=== PATIENT | male | born 1965 | race Caucasian/White ===

== ENCOUNTER 2017-04-22 19:59 | Inpatient (IN) | payer BC ==
[2017-04-22] MEDS: ONDANSETRON 4 MG INJ IV (21:04)
[2017-04-22] MEDS: morphine 4 MG/ML VIAL IV (21:04)
[2017-04-22] MEDS: SOD CHLORIDE 0.9% 1,000 ML IV ×2 (21:04→23:54)
[2017-04-22 21:25] LABS: ADD MAN DIFF? NO
[2017-04-22 21:31] LABS: BASOPHIL # 0.1 10^3/ul (0.0-0.1); BASOPHILS % 0.6 % (0.0-2.0); EOSINOPHILS # 0.2 10^3/ul (0.0-0.5); EOSINOPHILS % 2.4 % (0.0-7.0); HEMATOCRIT 41.3 % (42.0-52.0); HEMOGLOBIN 14.6 g/dl (14.0-18.0); LYMPHOCYTES # 1.3 10^3/ul (0.8-2.9); LYMPHOCYTES % 15.8 % (15.0-51.0); MEAN CORPUSCULAR HEMOGLOBIN 33.6 pg (29.0-33.0); MEAN CORPUSCULAR HGB CONC 35.4 g/dl (32.0-37.0); MEAN CORPUSCULAR VOLUME 94.9 fl (82.0-101.0); MEAN PLATELET VOLUME 10.1 fl (7.4-10.4); MONOCYTE # 0.6 10^3/ul (0.3-0.9); MONOCYTES % 7.6 % (0.0-11.0); NEUTROPHIL # 5.9 10^3/ul (1.6-7.5); NEUTROPHILS % 73.4 % (39.0-77.0); PLATELET COUNT 226 10^3/UL (140-415); RED BLOOD COUNT 4.35 10^6/ul (4.70-6.10); RED CELL DISTRIBUTION WIDTH 11.8 % (11.5-14.5)
[2017-04-22] MEDS: HYDROmorphONE 1 MG/ML SYG IV (21:41)
[2017-04-22 21:48] LABS: ALANINE AMINOTRANSFERASE 67 IU/L (13-69); ALBUMIN 4.2 g/dl (3.3-4.9); ALBUMIN/GLOBULIN RATIO 1.35; ALKALINE PHOSPHATASE 93 IU/L (42-121); ANION GAP 15 (8-16); ASPARTATE AMINO TRANSFERASE 36 IU/L (15-46); BILIRUBIN,INDIRECT 0.4 mg/dl (0-1.1); BILIRUBIN,TOTAL 0.4 mg/dl (0.2-1.3); BLOOD UREA NITROGEN 14 mg/dl (7-20); CALCIUM 9.4 mg/dl (8.4-10.2); CARBON DIOXIDE 28 mmol/L (21-31); CHLORIDE 101 mmol/L (97-110); CREATININE 0.91 mg/dl (0.61-1.24); GLUCOSE 92 mg/dl (70-220); LIPASE 160 U/L (23-300); POTASSIUM 3.9 mmol/L (3.5-5.1); SODIUM 140 mmol/L (135-144); TOTAL PROTEIN 7.3 g/dl (6.1-8.1)
[2017-04-23 00:10] LABS: LACTIC ACID 0.8 mmol/L (0.5-2.0)
[2017-04-23 00:38] LABS: INR 0.96; PROTIME 12.9 Sec (11.9-14.9)
[2017-04-23] MEDS: HYDROmorphONE 1 MG/ML SYG IV (01:11)
[2017-04-23 01:27] LABS: ADD UMIC NO; UR ASCORBIC ACID NEGATIVE (NEGATIVE); UR BILIRUBIN (Dip) NEGATIVE (NEGATIVE); UR BLOOD (Dip) NEGATIVE (NEGATIVE); UR CLARITY CLEAR (CLEAR); UR COLOR YELLOW (YELLOW); UR GLUCOSE (Dip) NEGATIVE (NEGATIVE); UR KETONES (Dip) TRACE mg/dL (NEGATIVE); UR LEUKOCYTE ESTERASE (Dip) NEGATIVE Leu/ul (NEGATIVE); UR NITRITE (Dip) NEGATIVE (NEGATIVE); UR SPECIFIC GRAVITY (Dip) 1.017 (1.003-1.030); UR TOTAL PROTEIN (Dip) NEGATIVE (NEGATIVE); UR UROBILINOGEN (Dip) 1+ mg/dL (NEGATIVE)
[2017-04-23] MEDS ORDERED: ACETAMINOPHEN 325 MG TAB PO ×2 (01:30→02:00)
[2017-04-23] MEDS ORDERED: ONDANSETRON 4 MG INJ IV ×3 (01:30→08:00)
[2017-04-23] MEDS ORDERED: NACL 0.9% 3 ML SYG IV (02:00)
[2017-04-23] MEDS: IOHEXOL 300MG/ML 150 ML BTL ×2 (02:19)
[2017-04-23] MEDS: SOD CHLORIDE 0.9% 100 ML (02:19)
[2017-04-23] MEDS: BARIUM SULF 2% 450 ML BTL (BERRY SMOOTHIE) PO (02:19)
[2017-04-23] MEDS: DIPHENHYDRAMINE 50 MG INJ IV (03:01)
[2017-04-23] MEDS: SOD CHLORIDE 0.9% 1,000 ML IV ×2 (04:22→14:21)
[2017-04-23] MEDS: morphine 2 MG INJ IV ×4 (06:09→20:16)
[2017-04-23] MEDS ORDERED: HEPARIN 25000 UNITS/250 ML 250 ML IV (06:30)
[2017-04-23] MEDS ORDERED: HEPARIN 1000 UNITS/ML 10 ML INJ IV ×3 (06:30)
[2017-04-23 07:00] LABS: ADD MAN DIFF? NO
[2017-04-23 07:07] LABS: WHITE BLOOD COUNT 6.2 10^3/ul (4.8-10.8)
[2017-04-23 07:07] LABS: BASOPHILS % 0.5 % (0.0-2.0); EOSINOPHILS # 0.2 10^3/ul (0.0-0.5); EOSINOPHILS % 3.3 % (0.0-7.0); HEMATOCRIT 36.9 % (42.0-52.0); LYMPHOCYTES # 1.2 10^3/ul (0.8-2.9); LYMPHOCYTES % 19.8 % (15.0-51.0); MEAN CORPUSCULAR HEMOGLOBIN 33.9 pg (29.0-33.0); MEAN CORPUSCULAR HGB CONC 35.2 g/dl (32.0-37.0); MEAN CORPUSCULAR VOLUME 96.1 fl (82.0-101.0); MONOCYTE # 0.5 10^3/ul (0.3-0.9); MONOCYTES % 8.3 % (0.0-11.0); NEUTROPHIL # 4.2 10^3/ul (1.6-7.5); NEUTROPHILS % 67.8 % (39.0-77.0); PLATELET COUNT 190 10^3/UL (140-415); RED BLOOD COUNT 3.84 10^6/ul (4.70-6.10); RED CELL DISTRIBUTION WIDTH 11.9 % (11.5-14.5)
[2017-04-23 07:27] LABS: INR 1.02; PROTIME 13.5 Sec (11.9-14.9); PT RATIO 1.1
[2017-04-23 07:28] LABS: PARTIAL THROMBOPLASTIN TIME 31.5 Sec (25.0-35.0)
[2017-04-23] MEDS ORDERED: LABETALOL HCL 20MG INJ IV (07:30)
[2017-04-23] MEDS ORDERED: FENTAnyl 50 MCG/ML VIAL IV (07:30)
[2017-04-23] MEDS ORDERED: MIDAZOLAM 1 MG/ML 2 ML INJ IV (07:30)
[2017-04-23] MEDS ORDERED: OXYCODONE/ACETAMINOPHEN (5/325) TAB PO ×2 (07:30)
[2017-04-23] MEDS ORDERED: MEPERIDINE 25 MG INJ IV (07:30)
[2017-04-23] MEDS ORDERED: HYDROmorphONE (0.2 MG/ML) 10ML SYG IV ×3 (07:30)
[2017-04-23] MEDS ORDERED: EPHEDrine SULFATE 50 MG/5 ML SYG IV (07:30)
[2017-04-23] MEDS ORDERED: hydrALAzine 20 MG INJ IV (07:30)
[2017-04-23] MEDS ORDERED: METOCLOPRAMIDE 10 MG INJ IV (07:30)
[2017-04-23] MEDS ORDERED: DIPHENHYDRAMINE 50 MG INJ IV (07:30)
[2017-04-23 07:32] LABS: LACTIC ACID 0.9 mmol/L (0.5-2.0)
[2017-04-23] MEDS ORDERED: ROCURONIUM 50 MG INJ (07:35)
[2017-04-23] MEDS ORDERED: SUCCINYLCHOLINE CHLORIDE 100 MG/5 ML SYG IV (07:35)
[2017-04-23] MEDS ORDERED: LIDOCAINE 2% (SDV) 5 ML INJ (07:35)
[2017-04-23] MEDS ORDERED: GLYCOPYRROLATE 0.4 MG INJ ×2 (07:35→08:12)
[2017-04-23] MEDS ORDERED: PROPOFOL 20 ML (07:36)
[2017-04-23] MEDS ORDERED: MEPERIDINE 100 MG INJ (07:36)
[2017-04-23] MEDS ORDERED: NEOSTIGMINE 3 MG/3 ML SYRINGE ×2 (07:36→08:12)
[2017-04-23] MEDS ORDERED: HYDROmorphONE 0.5 MG/0.5 ML SYG IV (08:00)
[2017-04-23] MEDS ORDERED: CEFAZOLIN 1 GM INJ (08:12)
[2017-04-23] MEDS ORDERED: BUPIVACAINE 0.25%/EPI (SDV) 30 ML INJ (08:17)
[2017-04-23] MEDS: BUPIVACAINE 0.25% (MPF) 30 ML INJ INJ (08:18)
[2017-04-23] MEDS: CIPROFLOXACIN 400MG/D5W 200 ML IVPB ×2 (08:55→20:11)
[2017-04-23] MEDS: FENTAnyl 50 MCG/ML VIAL IV ×2 (09:00→09:06)
[2017-04-23] MEDS: metroNIDAZOLE 500 MG/NS (PMX) 100 ML IVPB ×2 (09:11→16:22)
[2017-04-23] MEDS: D5-NS + KCL 20 MEQ 1,000 ML IV ×3 (10:28→21:50)
[2017-04-23] MEDS: LORAZEPAM 2 MG INJ IV (16:22)
[2017-04-24] MEDS: metroNIDAZOLE 500 MG/NS (PMX) 100 ML IVPB (00:01)
[2017-04-24] MEDS: SOD CHLORIDE 0.9% 1,000 ML IV ×2 (01:52→15:21)
[2017-04-24 05:52] LABS: ADD MAN DIFF? NO
[2017-04-24 05:54] LABS: WHITE BLOOD COUNT 6.7 10^3/ul (4.8-10.8)
[2017-04-24 05:54] LABS: BASOPHILS % 0.4 % (0.0-2.0); EOSINOPHILS # 0.2 10^3/ul (0.0-0.5); EOSINOPHILS % 2.8 % (0.0-7.0); HEMATOCRIT 36.7 % (42.0-52.0); HEMOGLOBIN 12.9 g/dl (14.0-18.0); LYMPHOCYTES % 14.4 % (15.0-51.0); MEAN CORPUSCULAR HEMOGLOBIN 33.9 pg (29.0-33.0); MEAN CORPUSCULAR HGB CONC 35.1 g/dl (32.0-37.0); MEAN CORPUSCULAR VOLUME 96.6 fl (82.0-101.0); MEAN PLATELET VOLUME 9.7 fl (7.4-10.4); MONOCYTE # 0.5 10^3/ul (0.3-0.9); MONOCYTES % 7.4 % (0.0-11.0); NEUTROPHILS % 74.7 % (39.0-77.0); PLATELET COUNT 171 10^3/UL (140-415); RED CELL DISTRIBUTION WIDTH 11.9 % (11.5-14.5)
[2017-04-24] MEDS: ENOXAPARIN 40 MG/0.4 ML SYG SC (06:38)
[2017-04-24 07:06] LABS: ALANINE AMINOTRANSFERASE 47 IU/L (13-69); ALBUMIN 3.2 g/dl (3.3-4.9); ALBUMIN/GLOBULIN RATIO 1.33; ALKALINE PHOSPHATASE 68 IU/L (42-121); ANION GAP 7 (8-16); ASPARTATE AMINO TRANSFERASE 24 IU/L (15-46); BILIRUBIN,INDIRECT 0.3 mg/dl (0-1.1); BILIRUBIN,TOTAL 0.3 mg/dl (0.2-1.3); BLOOD UREA NITROGEN 4 mg/dl (7-20); CALCIUM 8.2 mg/dl (8.4-10.2); CARBON DIOXIDE 31 mmol/L (21-31); CHLORIDE 103 mmol/L (97-110); CHOL/HDL RATIO 3.2 RATIO; CHOLESTEROL 142 mg/dl (100-200); CREATININE 0.63 mg/dl (0.61-1.24); GLUCOSE 116 mg/dl (70-220); HDL CHOLESTEROL 44 mg/dl (28-71); LDL CHOLESTEROL,CALCULATED 84 mg/dl; MAGNESIUM 1.8 mg/dl (1.7-2.5); POTASSIUM 3.9 mmol/L (3.5-5.1); SODIUM 137 mmol/L (135-144); TOTAL PROTEIN 5.6 g/dl (6.1-8.1); TRIGLYCERIDES 69 mg/dl (0-149)
[2017-04-24 07:37] LABS: FREE THYROXINE INDEX (Calc) 2.27 ug/ml (0.65-3.89); T3 UPTAKE 39.9 % (23.5-40.5); T4 (THYROXINE) 5.7 ug/dl (5.5-11.0)
[2017-04-24] MEDS: D5-NS + KCL 20 MEQ 1,000 ML IV ×2 (09:55→19:56)
[2017-04-24] MEDS: morphine 2 MG INJ IV ×4 (09:57→22:18)
[2017-04-25] MEDS: morphine 2 MG INJ IV ×3 (02:26→12:17)
[2017-04-25] MEDS: D5-NS + KCL 20 MEQ 1,000 ML IV (05:57)
[2017-04-25] MEDS: ENOXAPARIN 40 MG/0.4 ML SYG SC (06:29)
[2017-04-25] MEDS ORDERED: OXYCODONE/ACETAMINOPHEN (5/325) TAB PO (12:30)
[2017-04-25] MEDS: OXYCODONE/ACETAMINOPHEN (10/325) TAB PO (17:30)
[2017-04-25] MEDS: ONDANSETRON 4 MG INJ IV (18:58)
[2017-04-25] MEDS ORDERED: IBUPROFEN 600 MG TAB PO (20:00)
[2017-04-25] MEDS: METOCLOPRAMIDE 10 MG INJ IV (21:30)
[2017-04-25] MEDS: LORAZEPAM 2 MG INJ IV (22:54)
[2017-04-26] MEDS: LORAZEPAM 2 MG INJ IV (01:00)
[2017-04-26] MEDS: ENOXAPARIN 40 MG/0.4 ML SYG SC (06:30)
== END 2017-04-26 18:29 | disposition home or self-care (01) | DRG 329 ==
LOC: MS1 04-23 01:12 → E/R 19:59
PROC: 0DS80ZZ Reposition Small Intestine, Open Approach (ICD-10-PCS; principal; 2017-04-23 07:29)
PROC: 0DQV0ZZ Repair Mesentery, Open Approach (ICD-10-PCS; 2017-04-23 07:29)
DX: K56.2 Volvulus (principal); I81 Portal vein thrombosis; K45.8 Other specified abdominal hernia without obstruction or gangrene; K66.8 Other specified disorders of peritoneum; J38.1 Polyp of vocal cord and larynx; E78.5 Hyperlipidemia, unspecified; F41.9 Anxiety disorder, unspecified; Z98.84 Bariatric surgery status
CPT/HCPCS: 36415; 71010; 74176; 74177; 80053; 80061; 81003; 83036; 83605; 83690; 83735; 84436; 84479; 85025; 85610; 85730; 93005; 96374; 96375; 99285-25

== ENCOUNTER 2017-08-04 04:46 | Inpatient (IN) | payer MEDICAID, BC ==
[2017-08-04] MEDS: HYDROmorphONE 0.5 MG/0.5 ML SYG IV (07:51)
[2017-08-04] MEDS: ONDANSETRON 4 MG INJ IV ×3 (07:51→20:31)
[2017-08-04 07:56] LABS: ADD MAN DIFF? NO
[2017-08-04 08:00] LABS: BASOPHILS % 0.3 % (0.0-2.0); EOSINOPHILS % 0.3 % (0.0-7.0); HEMATOCRIT 41.2 % (42.0-52.0); HEMOGLOBIN 14.7 g/dl (14.0-18.0); LYMPHOCYTES # 1.4 10^3/ul (0.8-2.9); LYMPHOCYTES % 11.5 % (15.0-51.0); MEAN CORPUSCULAR HEMOGLOBIN 33.2 pg (29.0-33.0); MEAN CORPUSCULAR HGB CONC 35.7 g/dl (32.0-37.0); MEAN PLATELET VOLUME 9.2 fl (7.4-10.4); MONOCYTE # 0.6 10^3/ul (0.3-0.9); MONOCYTES % 4.9 % (0.0-11.0); NEUTROPHIL # 9.8 10^3/ul (1.6-7.5); NEUTROPHILS % 82.7 % (39.0-77.0); PLATELET COUNT 247 10^3/UL (140-415); RED BLOOD COUNT 4.43 10^6/ul (4.70-6.10); RED CELL DISTRIBUTION WIDTH 11.1 % (11.5-14.5)
[2017-08-04 08:00] LABS: WHITE BLOOD COUNT 11.8 10^3/ul (4.8-10.8)
[2017-08-04 08:24] LABS: ALANINE AMINOTRANSFERASE 40 IU/L (13-69); ALBUMIN 4.2 g/dl (3.3-4.9); ALBUMIN/GLOBULIN RATIO 1.23; ALKALINE PHOSPHATASE 110 IU/L (42-121); ANION GAP 15 (8-16); ASPARTATE AMINO TRANSFERASE 26 IU/L (15-46); BILIRUBIN,INDIRECT 0.1 mg/dl (0-1.1); BILIRUBIN,TOTAL 0.1 mg/dl (0.2-1.3); BLOOD UREA NITROGEN 14 mg/dl (7-20); CALCIUM 9.2 mg/dl (8.4-10.2); CARBON DIOXIDE 30 mmol/L (21-31); CHLORIDE 103 mmol/L (97-110); CREATININE 0.86 mg/dl (0.61-1.24); GLUCOSE 95 mg/dl (70-220); LIPASE 93 U/L (23-300); POTASSIUM 4.4 mmol/L (3.5-5.1); SODIUM 144 mmol/L (135-144); TOTAL PROTEIN 7.6 g/dl (6.1-8.1)
[2017-08-04 08:37] LABS: TROPONIN-I < 0.012 ng/ml (0.00-0.12)
[2017-08-04] MEDS ORDERED: ONDANSETRON 4 MG INJ IV (10:00)
[2017-08-04] MEDS ORDERED: ACETAMINOPHEN 325 MG TAB PO (10:00)
[2017-08-04] MEDS: BARIUM SULF 2% 450 ML BTL (BERRY SMOOTHIE) PO ×2 (10:07)
[2017-08-04 10:25] LABS: LACTIC ACID 0.9 mmol/L (0.5-2.0)
[2017-08-04] MEDS: SOD CHLORIDE 0.9% 100 ML (11:59)
[2017-08-04] MEDS: IOHEXOL 100 ML (11:59)
[2017-08-04] MEDS: IOHEXOL 300MG/ML 30 ML BTL ×2 (11:59)
[2017-08-04] MEDS: morphine 2 MG INJ IV ×2 (12:47→18:34)
[2017-08-04] MEDS ORDERED: NACL 0.9% 3 ML SYG IV (14:00)
[2017-08-04] MEDS: SOD CHLORIDE 0.9% 1,000 ML IV (15:00)
[2017-08-05] MEDS: morphine 2 MG INJ IV ×3 (00:29→13:08)
[2017-08-05] MEDS: SOD CHLORIDE 0.9% 1,000 ML IV ×2 (03:27→17:22)
[2017-08-05 06:36] LABS: ADD MAN DIFF? NO
[2017-08-05 06:39] LABS: BASOPHILS % 0.2 % (0.0-2.0); EOSINOPHILS % 0.1 % (0.0-7.0); HEMATOCRIT 42.6 % (42.0-52.0); HEMOGLOBIN 15.1 g/dl (14.0-18.0); LYMPHOCYTES # 1.3 10^3/ul (0.8-2.9); LYMPHOCYTES % 7.9 % (15.0-51.0); MEAN CORPUSCULAR HEMOGLOBIN 33.4 pg (29.0-33.0); MEAN CORPUSCULAR HGB CONC 35.4 g/dl (32.0-37.0); MEAN CORPUSCULAR VOLUME 94.2 fl (82.0-101.0); MEAN PLATELET VOLUME 9.5 fl (7.4-10.4); MONOCYTE # 0.8 10^3/ul (0.3-0.9); MONOCYTES % 4.8 % (0.0-11.0); NEUTROPHIL # 14.2 10^3/ul (1.6-7.5); NEUTROPHILS % 86.6 % (39.0-77.0); PLATELET COUNT 231 10^3/UL (140-415); RED BLOOD COUNT 4.52 10^6/ul (4.70-6.10); RED CELL DISTRIBUTION WIDTH 11.3 % (11.5-14.5)
[2017-08-05 06:39] LABS: WHITE BLOOD COUNT 16.4 10^3/ul (4.8-10.8)
[2017-08-05 07:04] LABS: ALANINE AMINOTRANSFERASE 40 IU/L (13-69); ALBUMIN 4.3 g/dl (3.3-4.9); ALBUMIN/GLOBULIN RATIO 1.48; ALKALINE PHOSPHATASE 98 IU/L (42-121); ANION GAP 15 (8-16); ASPARTATE AMINO TRANSFERASE 20 IU/L (15-46); BILIRUBIN,INDIRECT 0.1 mg/dl (0-1.1); BILIRUBIN,TOTAL 0.1 mg/dl (0.2-1.3); BLOOD UREA NITROGEN 11 mg/dl (7-20); CALCIUM 9.2 mg/dl (8.4-10.2); CARBON DIOXIDE 31 mmol/L (21-31); CHLORIDE 103 mmol/L (97-110); CREATININE 0.77 mg/dl (0.61-1.24); GLUCOSE 106 mg/dl (70-220); POTASSIUM 4.8 mmol/L (3.5-5.1); SODIUM 144 mmol/L (135-144); TOTAL PROTEIN 7.2 g/dl (6.1-8.1)
[2017-08-05] MEDS ORDERED: LIDOCAINE 1%/EPI 30 ML INJ ×2 (17:36→19:13)
[2017-08-05] MEDS ORDERED: BUPIVACAINE 0.25% (STERILE-PAK) 30 ML INJ ×2 (17:37→19:13)
[2017-08-05] MEDS ORDERED: morphine 2 MG INJ IV (18:00)
[2017-08-05] MEDS ORDERED: MEPERIDINE 100 MG INJ (18:38)
[2017-08-05] MEDS ORDERED: ROCURONIUM 50 MG INJ (18:38)
[2017-08-05] MEDS ORDERED: GLYCOPYRROLATE 0.4 MG INJ ×2 (18:38→19:10)
[2017-08-05] MEDS ORDERED: LIDOCAINE 2% (SDV) 5 ML INJ (18:38)
[2017-08-05] MEDS ORDERED: NEOSTIGMINE 3 MG/3 ML SYRINGE (18:38)
[2017-08-05] MEDS ORDERED: SUCCINYLCHOLINE CHLORIDE 100 MG/5 ML SYG IV (18:38)
[2017-08-05] MEDS ORDERED: PROPOFOL 20 ML (18:38)
[2017-08-05] MEDS ORDERED: hydrALAzine 20 MG INJ IV (19:00)
[2017-08-05] MEDS ORDERED: HYDROmorphONE (0.2 MG/ML) 10ML SYG IV (19:00)
[2017-08-05] MEDS ORDERED: OXYCODONE/ACETAMINOPHEN (5/325) TAB PO ×2 (19:00)
[2017-08-05] MEDS ORDERED: MEPERIDINE 25 MG INJ IV (19:00)
[2017-08-05] MEDS ORDERED: ONDANSETRON 4 MG INJ IV ×2 (19:00)
[2017-08-05] MEDS ORDERED: FENTAnyl 50 MCG/ML VIAL IV ×3 (19:00)
[2017-08-05] MEDS ORDERED: LABETALOL HCL 20MG INJ IV (19:00)
[2017-08-05] MEDS ORDERED: EPHEDrine SULFATE 50 MG/5 ML SYG IV (19:00)
[2017-08-05] MEDS ORDERED: MIDAZOLAM 1 MG/ML 2 ML INJ IV (19:00)
[2017-08-05] MEDS ORDERED: DIPHENHYDRAMINE 50 MG INJ IV (19:00)
[2017-08-05] MEDS ORDERED: METOCLOPRAMIDE 10 MG INJ IV (19:00)
[2017-08-05] MEDS ORDERED: ONDANSETRON 4 MG INJ (19:01)
[2017-08-05] MEDS ORDERED: CEFAZOLIN 1 GM INJ (19:01)
[2017-08-05] MEDS: SODIUM CHLORIDE 0.9% 1L IRRIG IRR (19:12)
[2017-08-05] MEDS: BUPIVACAINE 0.5%/EPI (SDV) 30 ML INJ INJ (19:30)
[2017-08-05] MEDS: LIDOCAINE 1%/EPI 30 ML INJ INJ (19:30)
[2017-08-05] MEDS: HYDROmorphONE (0.2 MG/ML) 10ML SYG IV ×2 (20:33→20:38)
[2017-08-05] MEDS: KETOROLAC 15 MG INJ IV (20:43)
[2017-08-05] MEDS: D5-NS + KCL 20 MEQ 1,000 ML IV (21:31)
[2017-08-05 21:46] LABS: ADD UMIC YES; UR ASCORBIC ACID NEGATIVE (NEGATIVE); UR BILIRUBIN (Dip) NEGATIVE (NEGATIVE); UR BLOOD (Dip) NEGATIVE (NEGATIVE); UR CLARITY CLEAR (CLEAR); UR COLOR YELLOW (YELLOW); UR GLUCOSE (Dip) NEGATIVE (NEGATIVE); UR KETONES (Dip) 1+ mg/dL (NEGATIVE); UR LEUKOCYTE ESTERASE (Dip) NEGATIVE Leu/ul (NEGATIVE); UR NITRITE (Dip) NEGATIVE (NEGATIVE); UR RBC 6 /HPF (0-5); UR SPECIFIC GRAVITY (Dip) 1.031 (1.003-1.030); UR TOTAL PROTEIN (Dip) 1+ mg/dl (NEGATIVE); UR UROBILINOGEN (Dip) NEGATIVE (NEGATIVE); UR WBC 2 /HPF (0-5)
[2017-08-06] MEDS: KETOROLAC 15 MG INJ IV ×4 (01:35→19:00)
[2017-08-06] MEDS: morphine 2 MG INJ IV ×5 (03:15→22:13)
[2017-08-06] MEDS: PANTOPRAZOLE 40 MG INJ IV (06:00)
[2017-08-06] MEDS: D5-NS + KCL 20 MEQ 1,000 ML IV (06:00)
[2017-08-06] MEDS: ENOXAPARIN 40 MG/0.4 ML SYG SC (06:51)
[2017-08-06] MEDS: D5W-0.45 NACL + KCL 20 MEQ 1,000 ML IV ×3 (10:39→22:07)
[2017-08-07] MEDS: KETOROLAC 15 MG INJ IV ×3 (00:47→13:33)
[2017-08-07] MEDS: PANTOPRAZOLE 40 MG INJ IV (05:27)
[2017-08-07] MEDS: D5W-0.45 NACL + KCL 20 MEQ 1,000 ML IV ×3 (05:30→22:39)
[2017-08-07] MEDS: morphine 2 MG INJ IV ×4 (06:46→22:33)
[2017-08-07] MEDS: ENOXAPARIN 40 MG/0.4 ML SYG SC (07:00)
[2017-08-07 08:54] LABS: ADD MAN DIFF? NO
[2017-08-07 09:02] LABS: BASOPHIL # 0.1 10^3/ul (0.0-0.1); BASOPHILS % 0.3 % (0.0-2.0); EOSINOPHILS # 0.3 10^3/ul (0.0-0.5); EOSINOPHILS % 1.9 % (0.0-7.0); HEMATOCRIT 37.7 % (42.0-52.0); HEMOGLOBIN 12.8 g/dl (14.0-18.0); LYMPHOCYTES # 0.7 10^3/ul (0.8-2.9); LYMPHOCYTES % 4.7 % (15.0-51.0); MEAN CORPUSCULAR HEMOGLOBIN 33.1 pg (29.0-33.0); MEAN CORPUSCULAR VOLUME 97.4 fl (82.0-101.0); MEAN PLATELET VOLUME 9.6 fl (7.4-10.4); MONOCYTE # 0.7 10^3/ul (0.3-0.9); MONOCYTES % 4.6 % (0.0-11.0); NEUTROPHIL # 13.8 10^3/ul (1.6-7.5); PLATELET COUNT 208 10^3/UL (140-415); RED BLOOD COUNT 3.87 10^6/ul (4.70-6.10); RED CELL DISTRIBUTION WIDTH 11.7 % (11.5-14.5)
[2017-08-07 09:02] LABS: WHITE BLOOD COUNT 15.7 10^3/ul (4.8-10.8)
[2017-08-07 09:24] LABS: ALANINE AMINOTRANSFERASE 24 IU/L (13-69); ALBUMIN 3.3 g/dl (3.3-4.9); ALBUMIN/GLOBULIN RATIO 1.22; ALKALINE PHOSPHATASE 80 IU/L (42-121); ANION GAP 11 (8-16); ASPARTATE AMINO TRANSFERASE 19 IU/L (15-46); BILIRUBIN,INDIRECT 0.3 mg/dl (0-1.1); BILIRUBIN,TOTAL 0.3 mg/dl (0.2-1.3); BLOOD UREA NITROGEN 9 mg/dl (7-20); CALCIUM 8.6 mg/dl (8.4-10.2); CARBON DIOXIDE 34 mmol/L (21-31); CHLORIDE 103 mmol/L (97-110); CREATININE 0.56 mg/dl (0.61-1.24); GLUCOSE 124 mg/dl (70-220); POTASSIUM 3.9 mmol/L (3.5-5.1); SODIUM 144 mmol/L (135-144)
[2017-08-07] MEDS: LEVOFLOXACIN 500MG/D5W (PMX) 100 ML IVPB (13:39)
[2017-08-08] MEDS: D5W-0.45 NACL + KCL 20 MEQ 1,000 ML IV ×3 (02:30→22:30)
[2017-08-08] MEDS: PANTOPRAZOLE 40 MG INJ IV (05:51)
[2017-08-08] MEDS: ENOXAPARIN 40 MG/0.4 ML SYG SC (05:52)
[2017-08-08 06:54] LABS: ADD MAN DIFF? NO
[2017-08-08 06:58] LABS: WHITE BLOOD COUNT 9.8 10^3/ul (4.8-10.8)
[2017-08-08 06:58] LABS: BASOPHILS % 0.2 % (0.0-2.0); EOSINOPHILS # 0.5 10^3/ul (0.0-0.5); EOSINOPHILS % 4.9 % (0.0-7.0); HEMATOCRIT 36.7 % (42.0-52.0); HEMOGLOBIN 12.6 g/dl (14.0-18.0); LYMPHOCYTES % 9.9 % (15.0-51.0); MEAN CORPUSCULAR HEMOGLOBIN 33.2 pg (29.0-33.0); MEAN CORPUSCULAR HGB CONC 34.3 g/dl (32.0-37.0); MEAN CORPUSCULAR VOLUME 96.8 fl (82.0-101.0); MEAN PLATELET VOLUME 9.6 fl (7.4-10.4); MONOCYTE # 0.6 10^3/ul (0.3-0.9); MONOCYTES % 6.1 % (0.0-11.0); NEUTROPHIL # 7.7 10^3/ul (1.6-7.5); NEUTROPHILS % 78.6 % (39.0-77.0); PLATELET COUNT 218 10^3/UL (140-415); RED BLOOD COUNT 3.79 10^6/ul (4.70-6.10); RED CELL DISTRIBUTION WIDTH 11.4 % (11.5-14.5)
[2017-08-08] MEDS: morphine 2 MG INJ IV ×3 (07:40→19:45)
[2017-08-08] MEDS: LEVOFLOXACIN 500MG/D5W (PMX) 100 ML IVPB (08:41)
[2017-08-08] MEDS ORDERED: OXYCODONE/ACETAMINOPHEN (5/325) TAB PO (10:00)
[2017-08-08] MEDS: POLYETHYLENE GLYCOL 17 GM PACKET PO (12:04)
[2017-08-09] MEDS: morphine 2 MG INJ IV (02:25)
[2017-08-09] MEDS: PANTOPRAZOLE 40 MG INJ IV (06:16)
[2017-08-09] MEDS: ENOXAPARIN 40 MG/0.4 ML SYG SC (06:19)
[2017-08-09] MEDS: D5W-0.45 NACL + KCL 20 MEQ 1,000 ML IV (08:30)
[2017-08-09] MEDS: LEVOFLOXACIN 500MG/D5W (PMX) 100 ML IVPB (08:42)
[2017-08-09] MEDS: POLYETHYLENE GLYCOL 17 GM PACKET PO (08:42)
== END 2017-08-09 18:13 | disposition home or self-care (01) | DRG 337 ==
LOC: E/R 04:46 → PP2 09:41
PROC: 0DNB0ZZ Release Ileum, Open Approach (ICD-10-PCS; principal; 2017-08-05 18:39)
PROC: 0WQF0ZZ Repair Abdominal Wall, Open Approach (ICD-10-PCS; 2017-08-05 18:39)
DX: K56.50 Intestinal adhesions [bands], unspecified as to partial versus complete obstruction (principal); K46.9 Unspecified abdominal hernia without obstruction or gangrene; F32.9 Major depressive disorder, single episode, unspecified
CPT/HCPCS: 36415; 71045; 74019; 74176; 74177; 80053; 81001; 83605; 83690; 84484; 85025; 87086; 93005; 96374; 96375; 99291-25